=== PATIENT | female | born 1935 | race African-American/Black ===

== ENCOUNTER 2017-12-29 00:32 | Inpatient (IN) ==
[2018-01-06 12:00] VITALS: BP 142/69
== END 2018-01-06 13:43 | disposition swing bed (61) | DRG 176 ==
LOC: EDBD → EDUNIT# → N.ED 00:32 → SUATTDRO 05:11 → N.EDINP 05:11 → N.TELEN 05:36
PROVIDERS: ADMIT Internal Medicine; ATTEND Internal Medicine